=== PATIENT | female | born 1945 | race Caucasian/White ===

== ENCOUNTER 2017-08-17 04:54 | Outpatient (CLI) | payer MEDICARE, MEDICAID | END 2017-08-17 23:59 | disposition home or self-care (01) | LOC: DIABETIC 04:54 | PROVIDERS: ATTEND Specialist | DX: E11.65 Type 2 diabetes mellitus with hyperglycemia (principal); I10 Essential (primary) hypertension; J45.909 Unspecified asthma, uncomplicated | CPT/HCPCS: G0108 ==

== ENCOUNTER 2019-04-11 15:27 | Emergency (ER) | payer MEDICARE, MEDICAID ==
[~2019-04-11] VITALS: Ht 160 cm; Wt 94.0 kg
[2019-04-11 16:10] LABS: BASOPHILS % (AUTO) 0.6 % (0-1); EOSINOPHILS # (AUTO) 0.1 X10'3 (0-0.9); EOSINOPHILS % (AUTO) 1.5 % (0-6); HEMATOCRIT 38.1 % (35.0-45.0); LYMPHOCYTES # (AUTO) 1.6 X10'3 (1.1-4.8); LYMPHOCYTES % (AUTO) 19.6 % (21-51); MEAN CORPUSCULAR HEMOGLOBIN 30.4 PG (27.0-31.0); MEAN CORPUSCULAR HGB CONC 34.1 g/dL (33.0-36.5); MEAN PLATELET VOLUME 6.5 FL (7.4-10.4); MONOCYTES # (AUTO) 0.8 X10'3 (0-0.9); MONOCYTES % (AUTO) 9.3 % (2-12); NEUTROPHILS # (AUTO) 5.6 X10'3 (1.8-7.7); PLATELET COUNT 300 X10'3 (140-440); RED BLOOD COUNT 4.27 X10'6 (4.20-5.60); RED CELL DISTRIBUTION WIDTH 13.2 % (11.5-14.5); WHITE BLOOD COUNT 8.1 X10'3 (4.5-11.0)
[2019-04-11 16:25] LABS: ALANINE AMINOTRANSFERASE 39 U/L (12-78); ALBUMIN 3.3 G/DL (3.4-5.0); ALBUMIN/GLOBULIN RATIO 0.8 (1.1-1.5); ALKALINE PHOSPHATASE 97 IU/L (46-116); ANION GAP 7 (8-16); ASPARTATE AMINO TRANSFERASE 25 U/L (10-37); BILIRUBIN,TOTAL 0.7 MG/DL (0.1-1.0); BLOOD UREA NITROGEN 18 MG/DL (7-18); BUN/CREATININE RATIO 14.6 (6.6-38.0); CALCIUM 9.2 MG/DL (8.5-10.1); CHLORIDE 105 MMOL/L (99-107); CREATININE 1.23 MG/DL (0.40-0.90); GLUCOSE 125 MG/DL (70-104); LIPASE 111 U/L (73-393); POTASSIUM 4.7 MMOL/L (3.5-5.1); SODIUM 141 MMOL/L (135-145); TOTAL CARBON DIOXIDE 28.7 MMOL/L (24-32); TOTAL PROTEIN 7.5 G/DL (6.4-8.2); eGFR 43 ML/MIN
[2019-04-11 18:31] LABS: CLARITY,URINE CLEAR (Clear); COLOR,URINE YELLOW (Yellow); GLUCOSE, URINE NEGATIVE (Neg); KETONES,URINE NEGATIVE (Neg); LEUKOCYTE ESTERASE ,URINE MODERATE (Neg); NITRITES, URINE NEGATIVE (Neg); OCCULT BLOOD,URINE NEGATIVE (Neg); PH,URINE 6.5 (4.8-8.0); PROTEIN,URINE NEGATIVE (Neg)
[2019-04-11 18:39] LABS: UA COLLECTION TYPE CLN CATCH MIDSTREAM
[2019-04-11 18:48] LABS: BACTERIA,URINE 1+ /HPF (Neg); MUCUS STRANDS NONE SEEN /LPF (Neg); RBC,URINE 0-2 /HPF (0-2); SQUAMOUS EPITHELIAL CELL,UR FEW /LPF (FEW); WBC CLUMPS,URINE FEW /HPF (NEGATIVE)
[2019-04-11 19:54] VITALS: BP 145/66
== END 2019-04-11 19:58 | disposition home or self-care (01) ==
LOC: ER 15:27
DX: R10.11 Right upper quadrant pain (principal); I10 Essential (primary) hypertension; J45.909 Unspecified asthma, uncomplicated; M19.90 Unspecified osteoarthritis, unspecified site; E11.9 Type 2 diabetes mellitus without complications; Z87.442 Personal history of urinary calculi; Z90.49 Acquired absence of other specified parts of digestive tract; Z90.710 Acquired absence of both cervix and uterus; Z88.6 Allergy status to analgesic agent; Z88.5 Allergy status to narcotic agent; Z88.8 Allergy status to other drugs, medicaments and biological substances
CPT/HCPCS: 36415; 74176; 80053; 81001; 83690; 85025; 87088; 93005; 99284

== ENCOUNTER 2019-04-25 07:44 | Day surgery (SDC) | payer MEDICARE, MEDICAID ==
[2019-04-25] VITALS (9 sets, daily range): BP systolic 123–156; BP diastolic 50–71
[~2019-04-25] VITALS: Ht 157.5 cm; Wt 99.5 kg
[2019-04-25] MEDS ORDERED: normal saline 1,000 ML IV SCH (08:15)
[2019-04-25] MEDS ORDERED: diphenhydrAMINE 25mg capsule PO PRN (08:15)
[2019-04-25] MEDS ORDERED: ZET10T PO (08:42)
[2019-04-25] MEDS ORDERED: METO5TAB85 PO (08:42)
[2019-04-25] MEDS ORDERED: CARV-50 PO (08:42)
[2019-04-25] MEDS ORDERED: PANT40TA4 PO (08:42)
[2019-04-25] MEDS ORDERED: NITR0.4T SL (08:42)
[2019-04-25] MEDS ORDERED: ROSU40TA22 PO (08:42)
[2019-04-25] MEDS ORDERED: HYDR-4383 PO (08:42)
[2019-04-25] MEDS ORDERED: DET2LAC PO (08:42)
[2019-04-25] MEDS ORDERED: NITR50CA PO (08:42)
[2019-04-25] MEDS ORDERED: LEVO75TA7 PO (08:42)
[2019-04-25] MEDS ORDERED: ISOS30TA6 PO (08:42)
[2019-04-25] MEDS ORDERED: ONDA8TAB6 PO (08:42)
[2019-04-25] MEDS ORDERED: RAMI5CAP65 PO (08:42)
[2019-04-25] MEDS ORDERED: fentaNYL/PF 50MCG/1 ML 2ML syringe ONE ×2 (08:52→09:34)
[2019-04-25] MEDS ORDERED: LIDOcaine 1% (10mg/ml)w/preservative injection 20ml MDV ONE (08:52)
[2019-04-25] MEDS ORDERED: midazolam 2 mg/2 ml injection ONE ×3 (08:52→09:34)
[2019-04-25] MEDS ORDERED: iohexol 350MG/ML 100ml bottle IV ONE (08:53)
[2019-04-25] MEDS ORDERED: iohexol 350 MG/ML 50ML vial IV ONE (08:53)
[2019-04-25 08:57] LABS: BASOPHILS % (AUTO) 0.6 % (0-1); EOSINOPHILS # (AUTO) 0.2 X10'3 (0-0.9); EOSINOPHILS % (AUTO) 2.8 % (0-6); HEMOGLOBIN 14.5 g/dl (12.0-16.0); LYMPHOCYTES # (AUTO) 1.5 X10'3 (1.1-4.8); LYMPHOCYTES % (AUTO) 24.5 % (21-51); MEAN CORPUSCULAR HEMOGLOBIN 30.2 PG (27.0-31.0); MEAN CORPUSCULAR HGB CONC 34.5 g/dL (33.0-36.5); MEAN CORPUSCULAR VOLUME 87.3 FL (78-98); MEAN PLATELET VOLUME 6.7 FL (7.4-10.4); MONOCYTES # (AUTO) 0.5 X10'3 (0-0.9); MONOCYTES % (AUTO) 7.7 % (2-12); NEUTROPHILS # (AUTO) 3.9 X10'3 (1.8-7.7); NEUTROPHILS % (AUTO) 64.4 % (42-75); PLATELET COUNT 364 X10'3 (140-440); RED CELL DISTRIBUTION WIDTH 13.1 % (11.5-14.5); WHITE BLOOD COUNT 6.1 X10'3 (4.5-11.0)
[2019-04-25 09:40] LABS: ANION GAP 6 (8-16); BLOOD UREA NITROGEN 19 MG/DL (7-18); BUN/CREATININE RATIO 18.1 (6.6-38.0); CHLORIDE 106 MMOL/L (99-107); CREATININE 1.05 MG/DL (0.40-0.90); GLUCOSE 128 MG/DL (70-104); MAGNESIUM 1.7 MG/DL (1.5-2.4); POTASSIUM 3.9 MMOL/L (3.5-5.1); SODIUM 143 MMOL/L (135-145); TOTAL CARBON DIOXIDE 30.7 MMOL/L (24-32); eGFR 51 ML/MIN
== END 2019-04-25 13:35 | disposition home or self-care (01) ==
LOC: SSTAY O 07:44
PROVIDERS: ATTEND Internal Medicine Cardiovascular Disease
DX: R94.39 Abnormal result of other cardiovascular function study (principal); I25.10 Atherosclerotic heart disease of native coronary artery without angina pectoris; I10 Essential (primary) hypertension; E66.01 Morbid (severe) obesity due to excess calories; Z68.41 Body mass index [BMI] 40.0-44.9, adult
CPT/HCPCS: 36415; 80048; 83735; 85025; 85610; 93005; 93458; 99152; 99153; C1760; C1769; C1894; J1644; J2001; J2250; J3010; J7030; Q0163; Q9967; 93571; A4620; A6258

== ENCOUNTER 2019-11-08 17:46 | Inpatient (IN) | payer MEDICARE, MEDICAID ==
[~2019-11-08] VITALS: Ht 160 cm; Wt 98.9 kg
[~2019-11-08 17:46] MED LIST: CARV-50 PO; DET2LAC PO; HYDR-4383 PO; ISOS30TA6 PO; LEVO75TA7 PO; METO5TAB85 PO; NITR0.4T SL; NITR50CA PO; ONDA8TAB6 PO; PANT40TA4 PO; RAMI5CAP65 PO; ROSU40TA22 PO; ZET10T PO
[2019-11-08 18:53] LABS: BASOPHILS % (AUTO) 0.4 % (0-1); EOSINOPHILS # (AUTO) 0.3 X10'3 (0-0.9); EOSINOPHILS % (AUTO) 4.2 % (0-6); HEMATOCRIT 37.5 % (35.0-45.0); HEMOGLOBIN 12.9 g/dl (12.0-16.0); LYMPHOCYTES # (AUTO) 2.1 X10'3 (1.1-4.8); LYMPHOCYTES % (AUTO) 34.3 % (21-51); MEAN CORPUSCULAR HEMOGLOBIN 29.9 PG (27.0-31.0); MEAN CORPUSCULAR HGB CONC 34.4 g/dL (33.0-36.5); MEAN CORPUSCULAR VOLUME 86.9 FL (78-98); MEAN PLATELET VOLUME 7.1 FL (7.4-10.4); MONOCYTES # (AUTO) 0.5 X10'3 (0-0.9); MONOCYTES % (AUTO) 8.7 % (2-12); NEUTROPHILS # (AUTO) 3.1 X10'3 (1.8-7.7); NEUTROPHILS % (AUTO) 52.4 % (42-75); PLATELET COUNT 276 X10'3 (140-440); RED BLOOD COUNT 4.32 X10'6 (4.20-5.60); RED CELL DISTRIBUTION WIDTH 13.4 % (11.5-14.5)
[2019-11-08] MEDS: nitroGLYCERIN 0.4mg SUBLingual tab SL PRN ×2 (19:03→19:11)
[2019-11-08 19:05] LABS: ALANINE AMINOTRANSFERASE 62 U/L (12-78); ALBUMIN 3.6 G/DL (3.4-5.0); ALBUMIN/GLOBULIN RATIO 0.9 (1.1-1.5); ALKALINE PHOSPHATASE 87 IU/L (46-116); ANION GAP 11 (8-16); ASPARTATE AMINO TRANSFERASE 47 U/L (10-37); BILIRUBIN,TOTAL 0.6 MG/DL (0.1-1.0); BLOOD UREA NITROGEN 25 MG/DL (7-18); BUN/CREATININE RATIO 17.1 (6.6-38.0); CALCIUM 9.7 MG/DL (8.5-10.1); CHLORIDE 105 MMOL/L (99-107); CREATININE 1.46 MG/DL (0.40-0.90); GLUCOSE 120 MG/DL (70-104); POTASSIUM 3.7 MMOL/L (3.5-5.1); SODIUM 137 MMOL/L (135-145); TOTAL CARBON DIOXIDE 21.3 MMOL/L (24-32); TOTAL PROTEIN 7.7 G/DL (6.4-8.2); eGFR 35 ML/MIN
--- NOTE | 2019-11-08 19:05 | NUR ---
PT ADMINISTERED 1 TAB NITRO SL FOR 6/10 CP. WILL REASSESS AND REPEAT DOSE IF NECESSARY.
--- NOTE | 2019-11-08 19:10 | NUR ---
PT ADMINISTERED ADDITIONAL TAB NITRO SL FOR CONTINUED 6/10 CP. WILL REASSESS IN 5 MINUTES.
[2019-11-08 19:13] LABS: MAGNESIUM 1.5 MG/DL (1.5-2.4)
--- NOTE | 2019-11-08 19:15 | NUR ---
PT NOW STATES PAIN IS MORE EPIGASTRIC AND FEELS MORE LIKE HEARTBURN. WILL INFORM MD FOR ADDITIONAL ORDERS.
[2019-11-08] MEDS ORDERED: sucralfate 1gm/10ml UD suspension PO STA (19:19)
[2019-11-08] MEDS ORDERED: LIDOcaine Viscous 15ml cup MM ONE (19:20)
[2019-11-08] MEDS ORDERED: nitroGLYCERIN 1gm ointment UD TP ONE (19:20)
[2019-11-08] MEDS ORDERED: mag hydrox/Alum hydrox/simeth 30ml oral suspension PO ONE (19:20)
[2019-11-08] MEDS ORDERED: magnesium Cl slow-release 64mg tablet PO PRN (20:10)
[2019-11-08] MEDS ORDERED: acetaminophen 325mg tablet PO PRN (20:10)
[2019-11-08] MEDS ORDERED: potassium CL 10mEq/100ml bag 100 ML IV PRN ×2 (20:10)
[2019-11-08] MEDS ORDERED: bisacodyl 10mg suppository rectal RC PRN (20:10)
[2019-11-08] MEDS ORDERED: mag hydrox/Alum hydrox/simeth 30ml oral suspension PO PRN (20:10)
[2019-11-08] MEDS ORDERED: magnesium 4gm in 100ml NS 100 ML IV PRN (20:10)
[2019-11-08] MEDS ORDERED: ondansetron/PF 4mg/2ml inj IV PRN (20:10)
[2019-11-08] MEDS ORDERED: potassium Cl 20 mEq SR tablet PO PRN (20:10)
[2019-11-08] MEDS ORDERED: magnesium hydroxide 30ml (MOM) UD suspension PO PRN (20:10)
[2019-11-08] MEDS ORDERED: magnesium 2GM in 50ml NS 50 ML IV PRN (20:10)
[2019-11-08] MEDS ORDERED: POTA10CA44 PO (20:23)
[2019-11-08] MEDS ORDERED: FURO40TA4 PO (20:23)
[2019-11-08] MEDS: pantoprazole 40 MG vial IV SCH (20:40)
--- NOTE | 2019-11-08 21:22 | NUR ---
Patient in room ED 6. I have received report from Pako ARENAS and had the opportunity to ask questions and assume patient care.
--- NOTE | 2019-11-08 21:35 | NUR ---
Patient arrived on unit. Alert and oriented. MRSA swab obtained and telemetry monitoring applied. Will continue to monitor closely.
[2019-11-08 22:00] VITALS: BP 136/72
[2019-11-08] MEDS ORDERED: metoprolol tartrate 1mg/ml inj IV PRN (22:05)
[2019-11-08] MEDS ORDERED: nitroGLYCERIN 0.4mg SUBLingual tab SL PRN (22:05)
[2019-11-08] MEDS ORDERED: aminophylline 250mg/10ml inj. IV PRN (22:05)
[2019-11-09] VITALS (22 sets, daily range): BP systolic 107–171; BP diastolic 43–66
[2019-11-09] MEDS: HYDROcodone/acetaminophen 5mg/325mg tablet PO PRN ×2 (01:22→16:37)
[2019-11-09 02:08] LABS: BASOPHILS % (AUTO) 0.5 % (0-1); EOSINOPHILS # (AUTO) 0.3 X10'3 (0-0.9); EOSINOPHILS % (AUTO) 4.5 % (0-6); HEMATOCRIT 38.1 % (35.0-45.0); HEMOGLOBIN 12.9 g/dl (12.0-16.0); MEAN CORPUSCULAR HEMOGLOBIN 29.8 PG (27.0-31.0); MEAN CORPUSCULAR HGB CONC 33.9 g/dL (33.0-36.5); MEAN CORPUSCULAR VOLUME 87.8 FL (78-98); MEAN PLATELET VOLUME 6.9 FL (7.4-10.4); MONOCYTES # (AUTO) 0.6 X10'3 (0-0.9); MONOCYTES % (AUTO) 8.6 % (2-12); NEUTROPHILS # (AUTO) 3.7 X10'3 (1.8-7.7); NEUTROPHILS % (AUTO) 56.4 % (42-75); PLATELET COUNT 276 X10'3 (140-440); RED BLOOD COUNT 4.34 X10'6 (4.20-5.60); RED CELL DISTRIBUTION WIDTH 13.2 % (11.5-14.5); WHITE BLOOD COUNT 6.6 X10'3 (4.5-11.0)
[2019-11-09 02:17] LABS: ALANINE AMINOTRANSFERASE 57 U/L (12-78); ALBUMIN 3.4 G/DL (3.4-5.0); ALBUMIN/GLOBULIN RATIO 0.9 (1.1-1.5); ALKALINE PHOSPHATASE 84 IU/L (46-116); ANION GAP 9 (8-16); ASPARTATE AMINO TRANSFERASE 41 U/L (10-37); BILIRUBIN,TOTAL 0.6 MG/DL (0.1-1.0); BLOOD UREA NITROGEN 24 MG/DL (7-18); BUN/CREATININE RATIO 15.6 (6.6-38.0); CALCIUM 9.5 MG/DL (8.5-10.1); CHLORIDE 106 MMOL/L (99-107); CREATININE 1.54 MG/DL (0.40-0.90); GLUCOSE 161 MG/DL (70-104); POTASSIUM 3.3 MMOL/L (3.5-5.1); SODIUM 139 MMOL/L (135-145); TOTAL CARBON DIOXIDE 24.4 MMOL/L (24-32); TOTAL PROTEIN 7.4 G/DL (6.4-8.2); eGFR 33 ML/MIN
[2019-11-09 02:21] LABS: MAGNESIUM 1.6 MG/DL (1.5-2.4)
[2019-11-09] MEDS ORDERED: regadenoson 0.4mg/5ml syringe IV ONE (06:00)
--- NOTE | 2019-11-09 06:14 | NUR ---
Problems reprioritized. Patient report given, questions answered & plan of care reviewed with Aylin ARENAS.
--- NOTE | 2019-11-09 07:18 | NUR ---
Patient in room PCU 3015. I have received report from Annette ARENAS and had the opportunity to ask questions and assume patient care.
[2019-11-09] MEDS: K and/or MAG REPLACEMENT MC SCH ×2 (08:00→19:51)
[2019-11-09] MEDS: lisinopril 20mg tablet PO SCH (08:00)
[2019-11-09] MEDS ORDERED: enoxaparin 40mg/0.4ml syringe SQ SCH (08:00)
[2019-11-09] MEDS: docusate sod 100mg capsule PO SCH ×2 (08:06→19:50)
[2019-11-09] MEDS: ezetimibe 10mg tablet PO SCH (08:07)
[2019-11-09] MEDS: levoTHYROXINE 75mcg tablet PO SCH (08:08)
[2019-11-09] MEDS: furosemide 20MG tablet PO SCH (08:09)
[2019-11-09] MEDS: pantoprazole 40 MG vial IV SCH (08:09)
[2019-11-09] MEDS: potassium Cl 20 mEq SR tablet PO PRN ×3 (08:15→19:50)
--- NOTE | 2019-11-09 12:03 | NUR ---
patient returned from having her ariel done in stable condition.
[2019-11-09] MEDS: carVEDilol 12.5mg tablet PO SCH ×2 (12:19→19:50)
--- NOTE | 2019-11-09 12:50 | NUR ---
PAGER ID: [phone] MESSAGE: [id number] Jeanna Doll back from her Gail. Pt. has been SR, SB. Do you want to review Coreg order? Aylin ARENAS [id number]
--- NOTE | 2019-11-09 13:41 | NUR ---
PAGER ID: [phone] MESSAGE: [id number] Jeanna Doll, supine 135/50, sitting 128/54, standing 77/52. Aylin ARENAS [id number]
[2019-11-09] MEDS ORDERED: normal saline 500ml IV soln 500 ML IV ONE ×2 (14:05→16:25)
--- NOTE | 2019-11-09 14:54 | NUR ---
Dr. Gross aware of HR trends and coreg/lasix dosage. okay with HR trends. Orthostatics reviewed with new orders to give a 500 ml bolus and recheck orthostatics.
--- NOTE | 2019-11-09 15:45 | NUR ---
PAGER ID: [phone] MESSAGE: [id number] Jeanna Doll IV bolus given. Lying 113/58, Sitting 121/60, Standing 86/35, pt. C/O dizziness with standing. ROSENDO Viera RN [id number]
--- NOTE | 2019-11-09 18:16 | NUR ---
Problems reprioritized. Patient report given, questions answered & plan of care reviewed with Ally ARENAS.
--- NOTE | 2019-11-09 18:30 | NUR ---
Patient in room PCU 3015. I have received report from MARLENE ARENAS and had the opportunity to ask questions and assume patient care.
[2019-11-09] MEDS ORDERED: nitrofurantoin macrocrystal 50mg capsule PO SCH (20:00)
[2019-11-10 01:43] VITALS: BP 125/47
--- NOTE | 2019-11-10 06:09 | NUR ---
Problems reprioritized. Patient report given, questions answered & plan of care reviewed with MARLENE ARENAS.
[2019-11-10 06:30] LABS: BASOPHILS % (AUTO) 0.6 % (0-1); EOSINOPHILS # (AUTO) 0.3 X10'3 (0-0.9); EOSINOPHILS % (AUTO) 5.4 % (0-6); HEMATOCRIT 39.4 % (35.0-45.0); HEMOGLOBIN 13.4 g/dl (12.0-16.0); LYMPHOCYTES # (AUTO) 1.5 X10'3 (1.1-4.8); LYMPHOCYTES % (AUTO) 30.4 % (21-51); MEAN CORPUSCULAR HEMOGLOBIN 30.4 PG (27.0-31.0); MEAN CORPUSCULAR VOLUME 89.3 FL (78-98); MEAN PLATELET VOLUME 6.5 FL (7.4-10.4); MONOCYTES # (AUTO) 0.5 X10'3 (0-0.9); MONOCYTES % (AUTO) 9.1 % (2-12); NEUTROPHILS # (AUTO) 2.7 X10'3 (1.8-7.7); NEUTROPHILS % (AUTO) 54.5 % (42-75); PLATELET COUNT 233 X10'3 (140-440); RED BLOOD COUNT 4.42 X10'6 (4.20-5.60); RED CELL DISTRIBUTION WIDTH 13.6 % (11.5-14.5)
--- NOTE | 2019-11-10 06:42 | NUR ---
Problems reprioritized. Patient report given, questions answered & plan of care reviewed with Ally ARENAS Addendum: 11/10/19 at 0645 by Aylin Alatorre RN Patient in room [place] [address]. I have received report from Ally ARENAS and had the opportunity to ask questions and assume patient care.
[2019-11-10 06:57] LABS: ALANINE AMINOTRANSFERASE 43 U/L (12-78); ALBUMIN 3.2 G/DL (3.4-5.0); ALBUMIN/GLOBULIN RATIO 0.8 (1.1-1.5); ALKALINE PHOSPHATASE 82 IU/L (46-116); ANION GAP 9 (8-16); ASPARTATE AMINO TRANSFERASE 31 U/L (10-37); BILIRUBIN,TOTAL 0.5 MG/DL (0.1-1.0); BLOOD UREA NITROGEN 20 MG/DL (7-18); BUN/CREATININE RATIO 18.2 (6.6-38.0); CHLORIDE 107 MMOL/L (99-107); GLUCOSE 126 MG/DL (70-104); MAGNESIUM 1.8 MG/DL (1.5-2.4); SODIUM 139 MMOL/L (135-145); TOTAL CARBON DIOXIDE 22.7 MMOL/L (24-32); TOTAL PROTEIN 7.2 G/DL (6.4-8.2); eGFR 49 ML/MIN
[2019-11-10 07:00] VITALS: BP 139/51
[2019-11-10] MEDS ORDERED: pantoprazole 40mg Tablet.DR PO SCH (07:30)
[2019-11-10] MEDS: furosemide 20MG tablet PO SCH (07:32)
[2019-11-10] MEDS: carVEDilol 12.5mg tablet PO SCH (07:32)
[2019-11-10] MEDS: docusate sod 100mg capsule PO SCH (07:33)
[2019-11-10] MEDS: levoTHYROXINE 75mcg tablet PO SCH (07:33)
[2019-11-10] MEDS: lisinopril 20mg tablet PO SCH (07:33)
[2019-11-10] MEDS: ezetimibe 10mg tablet PO SCH (07:34)
[2019-11-10 08:00] VITALS: BP_SYST 146; BP_SYST 167; BP_SYST 88; BP_DIAS 53; BP_DIAS 58; BP_DIAS 61
[2019-11-10] MEDS: K and/or MAG REPLACEMENT MC SCH (08:00)
[2019-11-10] MEDS ORDERED: enoxaparin 30mg/0.3ml syringe SUBCUT SCH (08:00)
[2019-11-10] MEDS ORDERED: normal saline 500ml IV soln 500 ML IV ONE (10:00)
--- NOTE | 2019-11-10 10:03 | NUR ---
Patient had positive orthostatics, MD made aware. Pt. is asymptomatic and is wanting to go home therefore, IV bolus is being cancelled. Discharge orders written.
--- NOTE | 2019-11-10 10:47 | NUR ---
Patient has order to discharge home. All discharge instructions reviewed with patient and all questions answered. Patient stated she would make her follow up appointments as she already has some scheduled and needs to look at her schedule. Tele removed. PIV removed. Pt. in good spirits. Education provided. Pt. stopped to get her valuables. Pt. left in stable condition.
--- NOTE | 2019-11-12 10:48 | NUR ---
Case Management DC follow up: Spoke with pt via telephone 11/12/19. Status post: lightheadedness, +orthostatic hypotension. reports: still symptomatic of lightheadedness, follows protocol, precautions. reports staying hydrated. Still gets SOB w/exertion. Denies: acute/continuous new onset cp, emergent SOB at rest, acute general pain, resp distress, N/V, sycope episodes, MCCRAY blurry vision, abd pain/distension, diarrhea, constipation, bladder pain, dysuria, polyuria, hematuria, retention, urgency, unexplained bleeding/bruising,fever. Verbalizes understanding of s/s that would warrant 12-18/ER visit for evaluation. Verbalizes understanding of Rx, why prescribed, resumes current Rx as ordered, denies ase r/t polypharmacy. pt compliant w/orders to DC Lasix, Potassium chloride. Acknowledges need to schedule/keep follow up appts w/PCP/Marian Phillips NP [facility] 11/26/19; Consular Officer/John awaiting pt records to schedule appt. will call pt to schedule. 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 Verbalizes compliance w/DC aftercare. Needs met, questions answered at DC, no further questions r/t post status DC at this time.
== END 2019-11-10 10:44 | disposition home or self-care (01) | DRG 641 ==
LOC: ER 17:46 → ED HOLD 20:07 → PCU 3S 20:07 → UNDOADMIN 20:07 → ED HOLD 21:24 → PCU 3S 21:24 → OBSVTOIN 11-10 08:30
PROVIDERS: ADMIT Family Medicine; ATTEND Family Medicine
PROC: 4A02XM4 Measurement of Cardiac Total Activity, External Approach (ICD-10-PCS; principal; 2019-11-09)
PROC: 3E073KZ Introduction of Other Diagnostic Substance into Coronary Artery, Percutaneous Approach (ICD-10-PCS; 2019-11-09)
DX: E86.0 Dehydration (principal); N17.9 Acute kidney failure, unspecified; I95.1 Orthostatic hypotension; E03.9 Hypothyroidism, unspecified; E78.5 Hyperlipidemia, unspecified; E78.00 Pure hypercholesterolemia, unspecified; J45.909 Unspecified asthma, uncomplicated; N18.3 Chronic kidney disease, stage 3 (moderate); K21.9 Gastro-esophageal reflux disease without esophagitis; E11.22 Type 2 diabetes mellitus with diabetic chronic kidney disease; I12.9 Hypertensive chronic kidney disease with stage 1 through stage 4 chronic kidney disease, or unspecified chronic kidney disease; R07.9 Chest pain, unspecified; Z79.899 Other long term (current) drug therapy; Z88.8 Allergy status to other drugs, medicaments and biological substances; Z88.5 Allergy status to narcotic agent; Z90.49 Acquired absence of other specified parts of digestive tract; Z90.710 Acquired absence of both cervix and uterus
CPT/HCPCS: 36415; 71045; 78452; 80053; 83735; 83880; 84484; 85025; 87081; 93005; 93017; 93306; 99285; A9500; C9113; G0378; J0280; J1650; J2785; J7040

== ENCOUNTER 2020-11-06 12:45 | Emergency (ER) | payer MEDICARE, MEDICAID ==
[~2020-11-06] VITALS: Ht 162.6 cm; Wt 103.3 kg
[~2020-11-06 12:45] MED LIST changes: -HYDR-4383 PO; -ISOS30TA6 PO; +ISOS30TA84 PO; -PANT40TA4 PO; +PANT40TA54 PO
[2020-11-06 14:21] LABS: BASOPHILS % (AUTO) 0.4 % (0-1); EOSINOPHILS # (AUTO) 0.1 X10'3 (0-0.9); EOSINOPHILS % (AUTO) 2.3 % (0-6); HEMOGLOBIN 13.7 g/dl (12.0-16.0); LYMPHOCYTES # (AUTO) 1.9 X10'3 (1.1-4.8); LYMPHOCYTES % (AUTO) 29.7 % (21-51); MEAN CORPUSCULAR HEMOGLOBIN 30.4 PG (27.0-31.0); MEAN CORPUSCULAR HGB CONC 34.2 g/dL (33.0-36.5); MEAN PLATELET VOLUME 7.2 FL (7.4-10.4); MONOCYTES # (AUTO) 0.6 X10'3 (0-0.9); MONOCYTES % (AUTO) 9.2 % (2-12); NEUTROPHILS # (AUTO) 3.7 X10'3 (1.8-7.7); NEUTROPHILS % (AUTO) 58.4 % (42-75); PLATELET COUNT 279 X10'3 (140-440); RED BLOOD COUNT 4.49 X10'6 (4.20-5.60); RED CELL DISTRIBUTION WIDTH 13.4 % (11.5-14.5); WHITE BLOOD COUNT 6.4 X10'3 (4.5-11.0)
[2020-11-06 14:39] LABS: ALANINE AMINOTRANSFERASE 30 U/L (12-78); ALBUMIN 3.5 G/DL (3.4-5.0); ALBUMIN/GLOBULIN RATIO 0.9 (1.1-1.5); ALKALINE PHOSPHATASE 73 IU/L (46-116); ANION GAP 10 (8-16); ASPARTATE AMINO TRANSFERASE 33 U/L (10-37); BILIRUBIN,TOTAL 0.5 MG/DL (0.1-1.0); BLOOD UREA NITROGEN 24 MG/DL (7-18); BUN/CREATININE RATIO 19.7 (6.6-38.0); CALCIUM 9.4 MG/DL (8.5-10.1); CHLORIDE 106 MMOL/L (99-107); CREATININE 1.22 MG/DL (0.40-0.90); GLUCOSE 124 MG/DL (70-104); POTASSIUM 4.4 MMOL/L (3.5-5.1); SODIUM 139 MMOL/L (135-145); TOTAL PROTEIN 7.3 G/DL (6.4-8.2); eGFR 43 ML/MIN
--- NOTE | 2020-11-06 17:47 | NUR ---
patient received in room 2.
[2020-11-06 17:50] VITALS: BP 134/69
== END 2020-11-06 18:28 | disposition home or self-care (01) ==
LOC: ER 12:45
DX: E87.8 Other disorders of electrolyte and fluid balance, not elsewhere classified (principal); R42 Dizziness and giddiness; R52 Pain, unspecified; E78.00 Pure hypercholesterolemia, unspecified; I10 Essential (primary) hypertension; J45.909 Unspecified asthma, uncomplicated; K21.9 Gastro-esophageal reflux disease without esophagitis; E11.9 Type 2 diabetes mellitus without complications; E07.9 Disorder of thyroid, unspecified; M19.90 Unspecified osteoarthritis, unspecified site; Z88.6 Allergy status to analgesic agent; Z88.8 Allergy status to other drugs, medicaments and biological substances; Z79.899 Other long term (current) drug therapy; Z87.440 Personal history of urinary (tract) infections; Z87.442 Personal history of urinary calculi; Z90.49 Acquired absence of other specified parts of digestive tract; Z90.710 Acquired absence of both cervix and uterus; Z98.890 Other specified postprocedural states; Z85.51 Personal history of malignant neoplasm of bladder
CPT/HCPCS: 36415; 71045; 80053; 83880; 84484; 85025; 93005; 99283; 99285

== ENCOUNTER 2021-01-26 14:45 | Outpatient (CLI) | payer MEDICARE, MEDICAID ==
[2021-01-26 15:26] LABS: TOTAL HEMOGLOBIN 13.8 G/dl (12.0-16.0)
== END 2021-01-26 23:59 | disposition home or self-care (01) ==
LOC: RT 14:45
PROVIDERS: ATTEND Internal Medicine Cardiovascular Disease
DX: R06.02 Shortness of breath (principal); R06.2 Wheezing
CPT/HCPCS: 85018; 94010; 94727; 94729

== ENCOUNTER 2021-10-05 11:14 | Day surgery (SDC) | payer MEDICARE, MEDICAID ==
[~2021-10-05] VITALS: Ht 157.5 cm; Wt 91.6 kg
[2021-10-05 11:45] VITALS: BP 135/65
[2021-10-05] MEDS ORDERED: normal saline 250ml IV soln 250 ML IV SCH (11:45)
[2021-10-05] MEDS ORDERED: AMLO2.5T5 PO (12:18)
[2021-10-05] MEDS ORDERED: ALBU8HFA (12:19)
[2021-10-05] MEDS ORDERED: CALC-1215 PO (12:22)
[2021-10-05] MEDS ORDERED: MYLANTA (12:22)
[2021-10-05] MEDS ORDERED: DOCU-148 PO (12:22)
[2021-10-05] MEDS ORDERED: TYL650S RC (12:22)
[2021-10-05] MEDS ORDERED: heparin 1,000unit/ml 10ml vial 0 ML ONE (12:38)
[2021-10-05] MEDS ORDERED: LIDOcaine 1%/PF 5ML 10 MG/ML VIAL ONE ×2 (12:38→12:42)
[2021-10-05] MEDS ORDERED: fentaNYL/PF 50MCG/1 ML 2ML syringe ONE (12:39)
[2021-10-05] MEDS ORDERED: midazolam 1 mg/ML 2ml injection ONE (12:39)
[2021-10-05] MEDS ORDERED: heparin sodium, porcine/PF 100unit/ml 5ML syringe ONE (12:40)
[2021-10-05] MEDS ORDERED: ondansetron/PF 4mg/2ml inj ONE (13:01)
[2021-10-05 13:45] VITALS: BP 137/60
[2021-10-05 14:00] VITALS: BP 124/62
[2021-10-05 14:15] VITALS: BP 119/66
[2021-10-05 14:30] VITALS: BP 119/57
[2021-10-05 15:00] VITALS: BP 129/69
== END 2021-10-05 15:15 | disposition home or self-care (01) ==
LOC: SSTAY O 11:14
PROVIDERS: ATTEND Radiology Diagnostic Radiology
DX: C50.212 Malignant neoplasm of upper-inner quadrant of left female breast (principal); K21.9 Gastro-esophageal reflux disease without esophagitis; I48.91 Unspecified atrial fibrillation; E03.9 Hypothyroidism, unspecified; M19.90 Unspecified osteoarthritis, unspecified site; E11.22 Type 2 diabetes mellitus with diabetic chronic kidney disease; I13.10 Hypertensive heart and chronic kidney disease without heart failure, with stage 1 through stage 4 chronic kidney disease, or unspecified chronic kidney disease; N18.9 Chronic kidney disease, unspecified; Z98.890 Other specified postprocedural states; Z79.899 Other long term (current) drug therapy; Z88.5 Allergy status to narcotic agent; Z91.040 Latex allergy status; Z88.8 Allergy status to other drugs, medicaments and biological substances; Z80.3 Family history of malignant neoplasm of breast
CPT/HCPCS: 36561; 76937; 77001; 99152; 99153; C1769; C1788; C1894; J1642; J2250; J2405; J3010; J3490; J7030; J7050; A4620; J1644

== ENCOUNTER 2024-02-29 09:32 | Day surgery (SDC) | payer MEDICARE, MEDICAID ==
[~2024-02-29] VITALS: Ht 157.5 cm; Wt 81.1 kg
[2024-02-29] VITALS (9 sets, daily range): BP systolic 143–175; BP diastolic 66–88; PULSE 70–76; RESP 14–16; TEMP 98.3; O2SAT 98–99
[~2024-02-29 09:32] MED LIST changes: +ALBU8HFA; +AMLO2.5T5 PO; +CALC-1215 PO; +DOCU-148 PO; +EZET10TA7 PO; -METO5TAB85 PO; +MYLANTA; -ONDA8TAB6 PO; -RAMI5CAP65 PO; +RAMI5CAP71 PO; -ROSU40TA22 PO; +ROSU40TA89 PO; +TYL650S RC; -ZET10T PO
[2024-02-29] MEDS ORDERED: normal saline 1,000 ML IV SCH (10:05)
[2024-02-29 10:33] LABS: BASOPHILS % (AUTO) 0.3 % (0-1); EOSINOPHILS # (AUTO) 0.1 X10'3 (0-0.9); EOSINOPHILS % (AUTO) 2.1 % (0-6); HEMOGLOBIN 12.7 g/dl (12.0-16.0); LYMPHOCYTES # (AUTO) 1.5 X10'3 (1.1-4.8); LYMPHOCYTES % (AUTO) 26.8 % (21-51); MEAN CORPUSCULAR HGB CONC 34.3 g/dL (33.0-36.5); MEAN CORPUSCULAR VOLUME 90.3 FL (78-98); MEAN PLATELET VOLUME 6.6 FL (7.4-10.4); MONOCYTES # (AUTO) 0.5 X10'3 (0-0.9); MONOCYTES % (AUTO) 8.2 % (2-12); NEUTROPHILS # (AUTO) 3.5 X10'3 (1.8-7.7); NEUTROPHILS % (AUTO) 62.6 % (42-75); PLATELET COUNT 321 X10'3 (140-440); RED CELL DISTRIBUTION WIDTH 13.6 % (11.5-14.5); WHITE BLOOD COUNT 5.5 X10'3 (4.5-11.0)
[2024-02-29] MEDS ORDERED: FURO20TA4 PO (10:36)
[2024-02-29] MEDS ORDERED: POTA-206 PO (10:36)
[2024-02-29 10:43] LABS: ALBUMIN 3.7 G/DL (3.4-5.0); ANION GAP 10 (8-16); BLOOD UREA NITROGEN 29 MG/DL (7-18); BUN/CREATININE RATIO 22.1 (10.0-20.0); CALCIUM 10.2 MG/DL (8.5-10.1); CHLORIDE 102 MMOL/L (99-107); CREATININE 1.31 MG/DL (0.40-0.90); GLUCOSE 136 MG/DL (70-104); MAGNESIUM 1.7 MG/DL (1.5-2.4); POTASSIUM 3.7 MMOL/L (3.5-5.1); SODIUM 139 MMOL/L (135-145); TOTAL CARBON DIOXIDE 26.7 MMOL/L (24-32); eCRCL 28 ML/MIN; eGFR 39 ML/MIN
[2024-02-29 10:45] LABS: PROTHROMBIN TIME 10.8 SECONDS (9.0-12.0)
[2024-02-29] MEDS: diphenhydrAMINE 25mg capsule PO PRN (10:46)
[2024-02-29] MEDS: sodium bicarbonate 1meq/ml syr 150 ML in dextrose 5%-water 1,000 ML IV ONE (10:47)
[2024-02-29] MEDS ORDERED: LIDOcaine 1% (10mg/ml) 2ml vial ONE (13:17)
[2024-02-29] MEDS ORDERED: verapamil 2.5 mg/ml inj IV ONE (13:17)
[2024-02-29] MEDS ORDERED: iohexol 350MG/ML 100ml bottle IV ONE (13:18)
[2024-02-29] MEDS ORDERED: fentaNYL/PF 50MCG/1 ML 2ML syringe ONE (13:18)
[2024-02-29] MEDS ORDERED: midazolam 1 mg/ML 2ml injection ONE ×2 (13:18→13:47)
[2024-02-29] MEDS ORDERED: heparin 1,000unit/ml 10ml vial 10 ML ONE (13:18)
[2024-02-29] MEDS ORDERED: iohexol 350 MG/ML 50ML vial IV ONE (13:18)
[2024-02-29] MEDS ORDERED: nitroGLYCERIN 500mcg/5mL D5W 5 ML IV ONE (13:20)
[2024-02-29] MEDS ORDERED: ondansetron/PF 4mg/2ml inj IV PRN (14:55)
[2024-02-29] MEDS ORDERED: acetaminophen 325mg tablet PO PRN (14:55)
[2024-02-29] MEDS ORDERED: HYDROcodone/acetaminophen 5mg/325mg tablet PO PRN (14:55)
[2024-02-29] MEDS ORDERED: proCHLORperazine 10 MG/2 ml inj IV PRN (14:55)
[2024-02-29] MEDS: HYDROcodone/acetaminophen 10/325mg tab PO PRN (15:31)
== END 2024-02-29 17:40 | disposition home or self-care (01) ==
LOC: SSTAY O 09:32
PROVIDERS: ATTEND Internal Medicine Cardiovascular Disease
DX: R07.89 Other chest pain (principal); Z79.899 Other long term (current) drug therapy; I10 Essential (primary) hypertension; Z85.3 Personal history of malignant neoplasm of breast
CPT/HCPCS: 36415; 80048; 82948; 83735; 85025; 85610; 93005; 93458; 99152; 99153; A6258; A6402; C1894; J1644; J2003; J2250; J3010; J3490; J7030; J7070; Q0163; Q9967; Z7610